=== PATIENT | male | born 1930 | race Caucasian/White ===

== ENCOUNTER 2017-07-21 17:53 | Inpatient (IN) | payer MEDICARE ==
[~2017-07-21] VITALS: Ht 172.7 cm; Wt 64.5 kg
--- NOTE | 2017-07-21 17:30 | NUR ---
PATIENT ADMITS TO [facility] HE COMES TO US FROM [facility]. HE WAS TAKEN TO THEIR HOSPITAL FOR A SYNCOPAL EPISODE HE HAD IN THE SHOWER AT HOME, BUT HE HAS A HX A DEMENTIA SINCE 2007. HE LIVES AT HOME WITH HIS SPOUSE AND SHE HAS BEEN CARING FOR HIM ALONG WITH HER NIECE. SHE SAYS "IT IS TIME HE GETS MORE HELP" SHE IS EXHAUSTED. PATIENT CAN AMBULATE, HE DOES HAVE SOME SCRATCHES TO HIS RIGHT BUTTOCKS FROM THE FALL AT HOME.
[2017-07-21 18:35] VITALS: BP 129/55
[2017-07-21] MEDS ORDERED: ASPIRIN81 MG PO (19:01)
[2017-07-21] MEDS ORDERED: ARICEPT10 MG PO (19:02)
[2017-07-21] MEDS ORDERED: HALDOL5 MG/ML IM (19:02)
[2017-07-21] MEDS ORDERED: NAMENDA10 MG PO (19:03)
[2017-07-21 19:04] VITALS: BP 129/55; BMI 21.1
--- NOTE | 2017-07-22 01:32 | NUR ---
B) Patient is alert and oriented to name, very confused , unable to communicate, very restless at times, combative at times, I) Administered PRN Haldol 2 mg IM at 20:00, monitored for safety and for falls, R) resting in bed , restless and pulling at bedrqails at times, P) Continue plan of care.
[2017-07-22 07:55] LABS: BASOPHILS 0.2 % (0-2); EOSINOPHILS 1.7 % (0-7); HEMATOCRIT 37.9 % (42.0-54.0); HEMOGLOBIN 13.1 g/dL (13.5-17.5); IMMATURE GRANULOCYTES 0.2 % (0-5); LYMPHOCYTES 28.7 % (15-50); MCH 32.7 pg (26.0-34.0); MCHC 34.6 g/dL (31.0-37.0); MCV 94.5 fL (80.0-100.0); MEAN PLATELET VOLUME 9.5 fL (7.4-10.4); NEUTROPHILS 60.2 % (40-80); PLATELET COUNT 111 10x3/uL (130-400); RBC 4.01 10x6/uL (4.20-6.10); RDW 13.3 % (11.5-14.5); WBC 5.3 10x3/uL (4.8-10.8)
[2017-07-22 08:00] VITALS: BP 98/55
[2017-07-22 08:04] LABS: HEMOGLOBIN A1C 5.5 % (4.8-6.0)
[2017-07-22 08:20] LABS: ALBUMIN 3.6 g/dL (3.4-5.0); ALKALINE PHOSPHATASE 75 U/L (46-116); ALT (SGPT) 21 U/L (10-68); BILIRUBIN - TOTAL 0.97 mg/dL (0.2-1.3); CALC OSMOLALITY 280 mosm/kg (275-300); CALCIUM 9.7 mg/dL (8.5-10.1); CARBON DIOXIDE 28.4 mmol/L (21.0-32.0); CHLORIDE - SERUM 103 mmol/L (98-107); CHOL - HDL RATIO 4.4 ratio (2.3-4.9); CHOLESTEROL, TOTAL 196 mg/dL (0-200); CREATININE - SERUM 0.9 mg/dL (0.6-1.3); GLUCOSE 102 mg/dL (74-106); HDL CHOLESTEROL 45 mg/dL (32-96); LDL CHOLESTEROL 137 mg/dL (0-100); POTASSIUM - SERUM 4.3 mmol/L (3.5-5.1); PROTEIN - SERUM 6.7 g/dL (6.4-8.2); SODIUM 140 mmol/L (136-145); THYROID STIMULATING HORMONE 2.29 uIU/mL (0.36-3.74); TRIGLYCERIDE 73 mg/dL (30-200); UREA NITROGEN 18 mg/dL (7-18); eGFR NON AFRICAN AMERICAN 85 mL/min (90-120)
[2017-07-22 14:26] VITALS: BMI 21.1
--- NOTE | 2017-07-22 15:08 | NUR ---
B) PATIENT IS AWAKE AND ALERT, HE IS ENJOYING THE SINGING IN THE DAY ROOM AND THE MUSIC. HE IS SMILING, HE FIGHTS WHEN ADL'S ARE BEING PROVIDED FOR HIM. PATIENT DID FEED HIMSELF LUNCH TODAY. HE DOES NOT SPEAK, HE USES WORD SALAD MOSTLY. I) PROVIDE PRESCRIBED MEDS. R) PATIENT IS COMPLIANT WITH MEDS CRUSHED IN A DRINK. P) CONTINUE POC.
--- NOTE | 2017-07-22 21:52 | PSY ---
PATIENT NAME:MARCELINO BERMUDEZ MEDICAL RECORD: [id number] : 31 LOCATION:[facility] ADMISSION DATE: 07/21/17 ACCOUNT: [id number] PSYCHIATRIC EVALUATION DATE OF EVALUATION: 07/22/17 IDENTIFYING DATA: This is the first Alf admission for this 87-year-old white male. HISTORY OF PRESENT ILLNESS: This patient had presented to the Emergency Department at [facility] prior to transfer here. The patient evidently had been having some syncopal episodes at home, does have a past history of cerebrovascular disease. He also has a previous history of dementia. His had been his caregiver, but because of the his worsening confusion and restlessness, she had reached the point that she felt she can no longer take care of him at home. When seen at [facility] Emergency Department, the patient had become extremely agitated and combative and required the use of intramuscular Haldol. After transfer here; however, the patient had evidently calmed considerably. He did not require further p.r.n. medication following transfer. The patient has shown progressive deterioration in mental status for sometime. He cannot communicate clearly at all. Speech is disjointed and rambling. Because of worsened mental status and combativeness, the patient was admitted. PAST MEDICAL HISTORY: This is significant for chronic atrial fibrillation and hyperlipidemia. Otherwise, the past history is relatively clear. MEDICATIONS: Prior to admission included aspirin, Aricept, and Namenda. ALLERGIES: None listed. FAMILY HISTORY: Noncontributory. SOCIAL HISTORY: The patient has been living at home with his . No substance abuse issues are noted. MENTAL STATUS: On interview, the patient is seated in a chair. He is responsive to the examiner, but does appear somewhat drowsy from time to time. He does not voice a specific complaint. Mood is for the most part euthymic. Affect is very constricted. Speech is nonfocused and somewhat rambling. Content of thought is negative for overt psychosis. On sensorium testing, the patient is oriented only to person. Remote, intermediate and short-term recall all showed significant deficits. 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 AXIS II: No diagnosis. AXIS III: Chronic atrial fibrillation, hyperlipidemia. AXIS IV: Severe. AXIS V: 36. PLAN: 1. The patient is admitted for further medical and psychiatric workup. 2. Diet and activities as tolerated. 3. We will assist family with aftercare plans and possible placement. TRANSINT:[id number] Voice Confirmation ID: [id number] DOCUMENT ID: [id number] YEVGENIY SANDOVAL III, MD at 2152 CC: [id number] DICTATION DATE: 07/22/17 1210 SOAKER SODA WORKER: 07/22/17 1254 ADM IN [place] [id number] [place] [address]
--- NOTE | 2017-07-23 00:55 | NUR ---
RECEIVED IN BEDROOM. ASSISTED TO TRANSFERE TO BED. VERY CONFUSED. CALM AND COOPERATIVE WITH CARE AND ASSESSMENTS. NO SIGNS OF AGGRESSION. REDIRECT AND REORIENT NEEDED. RESTING IN BED EYES CLOSED AT THIS TIME. CONTINUE PLAN OF CARE
[2017-07-23 05:14] LABS: RAPID PLASMA REAGIN Non Reactive (Non Reactive)
[2017-07-23 08:16] LABS: FOLATE (FOLIC ACID) - SERUM 8.9 ng/mL (>3.0)
--- NOTE | 2017-07-23 13:15 | NUR ---
SITTING IN RECLINER,NONVERBAL.COMPLIANT WITH MEDS AND STAFF.WILL CONTINUE WITH PLAN OF CARE,MONITOR FOR CHANGES AND SAFETY.
--- NOTE | 2017-07-23 22:50 | NUR ---
RECEIVED IN BEDROOM. RESTING IN BED WITH EYES OPEN. NON VERBAL. CALM AND COOPERATIVE WITH CARE AND ASSESSMENTS. NO SIGNS OF AGGRESSION. REDIRECT AND REORIENT NEEDED, CONTINUES TO REST QUIETLY IN BED. CONTINUE PLAN OF CARE
--- NOTE | 2017-07-24 05:02 | PN ---
PATIENT:MARCELINO BERMUDEZ MEDICAL RECORD: [id number] LOCATION:TO [facility] ADMISSION DATE: 07/21/17 PROGRESS NOTE DATE OF SERVICE: 07/23/2017 SUBJECTIVE: No new complaint. OBJECTIVE: The patient has remained cooperative. He is confused and oriented only to person. On exam, mood is euthymic. Affect is constricted. Speech is very terse today. Content of thought negative for overt psychosis. Sensorium shows no change. ASSESSMENT: No change in diagnosis. PLAN: 1. Maintain current medication. 2. Continue supportive therapy. TRANSINT:[id number] Voice Confirmation ID: [id number] DOCUMENT ID: [id number] YEVGENIY SANDOVAL III, MD at 0502 CC: [id number] DICTATION DATE: 07/23/17 0956 WRIST CLOSER: 07/23/17 1157 ADM IN [id number] [place] [address]
--- NOTE | 2017-07-24 11:18 | NUR ---
KEEPS EYES CLOSED MOST OF THE TIME.REFUSED BREAKFAST THIS AM.IS TOTAL CARE,SPOON FED PER STAFF WHEN HE WILL EAT.COMPLIANT WITH MEDS,MEDS CRUSHED AND GIVEN IN APPLESAUCE.WILL CONTINUE WITH PLAN OF CARE,MONITOR FOR CHANGES AND SAFETY.
[2017-07-24 19:09] VITALS: BP 136/71
[2017-07-24 20:30] VITALS: BP 127/53
--- NOTE | 2017-07-24 22:05 | NUR ---
RECEIVED IN HALLWAY. RESTING IN RECLINING CHAIR WITH EYES OPEN. NON VERBAL. NOT SOCIALIZING WITH STAFF OR PEERS. CALM AND COOPERATIVE WITH CARE AND ASSESSMENTS. NO SIGNS OF AGGRESSION. REDIRECT AND REORIENT. ENCOURAGE TO EXPRESS NEEDS. REFUSES PM MEDS AFTER ENCOURAGEMENT. RESTING IN BED WITH EYES CLOSED AT THIS TIME. CONTINUE PLAN OF CARE
[2017-07-25 06:07] LABS: VITAMIN D 25 HYDROXY 16.2 ng/mL (30.0-100.0)
[2017-07-25 12:18] VITALS: BP 148/78
--- NOTE | 2017-07-25 14:00 | NUR ---
ALERT TO NAME ONLY, SITTING IN RECLINER AND ANSWERS SOFTLY. COOPERATIVE WITH ASSESSMENT AND CARE. CONTINUE PLAN OF CARE AND MONITOR FOR SAFETY.
[2017-07-25 20:35] VITALS: BP 104/64
--- NOTE | 2017-07-25 21:04 | NUR ---
RECEIVED IN HALLWAY OUTSIDE OF NURSES STATION. SITTING QUIETLY IN CHAIR. CALM AND COOPERATIVE WITH CARE AND ASSESSMENTS. NON VERBAL. NO SIGNS OF AGGRESSION. ENCOURAGE TO EXPRESS NEEDS. RESTING IN BED WITH EYES CLOSED AT THIS TIME. CONTINUE PLAN OF CARE
--- NOTE | 2017-07-26 10:17 | PN ---
PATIENT:MARCELINO BERMUDEZ MEDICAL RECORD: [id number] LOCATION:[facility] ADMISSION DATE: 07/21/17 PROGRESS NOTE DATE OF SERVICE: 07/25/2017 SUBJECTIVE: No verbal complaint. OBJECTIVE: The patient continues to be rather withdrawn. He has been refusing medications from time to time. He has not been aggressive. Staff has been in contact with the patient's and it is apparent that he will need placement. PHYSICAL EXAMINATION: On exam, mood is euthymic. Affect is very constricted. Speech is minimal. Content of thought appears to focus only on somatic concerns. Sensorium shows no change. ASSESSMENT: No change in diagnosis. PLAN: 1. Maintain current medications. 2. Continue supportive therapy. TRANSINT:[id number] Voice Confirmation ID: [id number] DOCUMENT ID: [id number] YEVGENIY SANDOVAL III, MD at 1017 CC: [id number] DICTATION DATE: 07/25/17 1354 TRAFFIC DIRECTOR: 07/25/17 1419 ADM IN [place] [place] [address]
[2017-07-26 10:32] VITALS: BP 121/55
--- NOTE | 2017-07-26 21:54 | NUR ---
RECEIVED IN HALLWAY. SITTING IN A RECLINER AT NURSES STATION. CONTINUOUSLY ATTEMPTS TO STAND WITHOUT ASSIST. VERY CONFUSED. INCREASING ANXIETY. PRN ATIVAN 1 MG IM GIVEN FOR ANXIETY. CALM AND COOPERATIVE WITH CARE AND ASSESSMENTS. CONTINUES TO LAY IN RECLINER IN HALLWAY. ONE OM ONE FOR SAFETY. CONTINUE PLAN OF CARE
--- NOTE | 2017-07-27 09:31 | PN ---
PATIENT:MARCELINO BERMUDEZ MEDICAL RECORD: [id number] LOCATION:TO [facility] ADMISSION DATE: 07/21/17 PROGRESS NOTE DATE OF SERVICE: 07/26/2017 SUBJECTIVE: No new complaint noted. OBJECTIVE: The patient is much more alert. He is even interacting with staff members. Tolerating medications. On exam, mood is euthymic. Affect is bland. Speech is rather terse. Content of thought is negative for overt psychosis at the moment. Sensorium unchanged. ASSESSMENT: No change in diagnosis. PLAN: 1. Maintain current medications. 2. Continue supportive therapy. TRANSINT:[id number] Voice Confirmation ID: [id number] DOCUMENT ID: [id number] YEVGENIY SANDOVAL III, MD at 0931 CC: [id number] DICTATION DATE: 07/26/17 1209 AMBULETTE DRIVER: 07/26/17 1233 ADM IN [facility] [address] [place] [id number]
--- NOTE | 2017-07-27 15:47 | NUR ---
Alert, calm, participated with PT exercise. Denies pain, med compliant with no s/s adverse reaction noted. Continued confusion, no aggression noted. Present for group, participates when cued. Cont plan of care including meds and group therapy.
--- NOTE | 2017-07-27 20:12 | NUR ---
RECEIVED IN HALLWAY. VERY CONFUSED. ATTEMPTS TO STAND WITHOUT ASSIST. BECOMING INCREASINGLY ANXIOUS WITH REDIRECTION. CALM AND COOPERATIVE WITH CARE AND ASSESSMENTS. NO SIGNS OF AGGRESSION. PRN ATIVAN 1 MG IM GIVEN FOR INCREASING ANXIETY. CONTINUES TO SIT IN RECLINER OUTSIDE OF NURSES STATION VERY CONFUSED TRYING TO GET OUT OF RECLINER. CONTINUE PLAN OF CARE
--- NOTE | 2017-07-28 08:07 | PN ---
PATIENT:MARCELINO BERMUDEZ MEDICAL RECORD: [id number] LOCATION:TO [facility] ADMISSION DATE: 07/21/17 PROGRESS NOTE DATE OF SERVICE: 07/27/2017 SUBJECTIVE: No new complaint. OBJECTIVE: The patient continues to show improvement. He is much more ambulatory. On exam, mood is for the most part pleasant and euthymic. Affect is still very shallow. Speech is quite terse. Content of thought is unchanged. Sensorium unchanged. ASSESSMENT: No change in diagnosis. PLAN: 1. Staff is maintaining contact with family regarding shelter placement. 2. Maintain current medications. 3. Continue supportive therapy. TRANSINT:[id number] Voice Confirmation ID: [id number] DOCUMENT ID: [id number] YEVGENIY SANDOVAL III, MD at 0807 CC: [id number] DICTATION DATE: 07/27/17 1154 ROBOTICS SOFTWARE ENGINEER: 07/27/17 1224 ADM IN [facility] [address] [place] [address]
--- NOTE | 2017-07-28 10:08 | NUR ---
B) PATIENT IS SLEEPY THIS AM, HELD HIS MEDICATION, HE IS GETTING HIS PATINO TRIMMED AT THIS TIME, HE HAS TRIED TO HIT AT STAFF, BUT HE REMAINS SLEEPY. I) PROVIDE PRESCRIBED MEDS. R) PATIENT IS CALM THIS AM, BUT HE IS BECAUSE HE IS SLEEPY. P) CONTINUE POC.
[2017-07-28 11:59] VITALS: BP 119/56
--- NOTE | 2017-07-28 15:54 | NUR ---
FENG SPOKE WITH PT'S , JOY, TO DISUSS DISCHARGE PLANNING. FENG STATED [facility] HAVE BEEN SENT THE PAPERWORK AND WE ARE WAITING FOR DETERMINATION ON PT'S PLACEMENT. JOY VERBALIZED UNDERSTANDING OF DISCUSSION.
--- NOTE | 2017-07-28 20:04 | NUR ---
RECEIVED IN DAYROOM. SITTING IN RECLINER. NON VERBAL. NOT SOCIALIZING. CALM AND COOPERATIVE WITH CARE AND ASSESSMENT. NO SIGNS OF AGGRESSION. ENCOURAGE TO EXPRESS NEEDS. REDIRECT AND REORIENT NEEDED. PATIENT CONTINUES TO SIT IN RECLINER QUIETLY AT THIS TIME. CONTINUE PLAN OF CARE.
[2017-07-28 22:00] VITALS: BP 133/79
--- NOTE | 2017-07-29 08:01 | NUR ---
RESTING IN RECLINER WITH EYES CLOSED. RESPONDS TO VOICE AND TOUCH. CALM AND COOPERATIVE WITH CARE AND ASSESSMENTS. NO SIGNS OF AGGRESSION. REDIRECT AND REORIENT NEEDED. CONTINUES TO REST QUIETLY IN RECLINER. CONTINUE PLAN OF CARE
--- NOTE | 2017-07-29 08:30 | NUR ---
WHEN STAFF WENT TO CHANGE PATIENT, IT IS NOTED THAT PATIENT HAS A LARGE REDDENED AREA TO THE RIGHT SIDE OF HIS LOWER BACK THAT IS APPROXIMATELY 4 INCHES WIDE X 6 INCHES LONG. STAFF APPLIED OSVALDO TO AREA.
--- NOTE | 2017-07-29 10:07 | PN ---
PATIENT:MARCELINO BERMUDEZ MEDICAL RECORD: [id number] LOCATION:TO [facility] ADMISSION DATE: 07/21/17 PROGRESS NOTE DATE OF SERVICE: 07/28/2017 SUBJECTIVE: No new complaint. OBJECTIVE: The patient has been somewhat more agitated and restless. He required p.r.n. Ativan and slept poorly last night. On exam today, mood is slightly irritable. Affect is brittle. Speech is tangential. Content of thought is negative for clear-cut psychosis. Sensorium is unchanged. ASSESSMENT: No change in diagnosis. PLAN: 1. Maintain current medication. 2. Continue supportive therapy. TRANSINT:[id number] Voice Confirmation ID: [id number] DOCUMENT ID: [id number] YEVGENIY SANDOVAL III, MD at 1007 CC: [id number] DICTATION DATE: 07/28/17 1151 CORE MANAGER: 07/28/17 1207 ADM IN [place] [id number] [place] [id number]
[2017-07-29 10:47] VITALS: BP 97/62
[2017-07-29 19:30] VITALS: BP 120/53
--- NOTE | 2017-07-30 05:21 | NUR ---
B) Patient alert and oriented to self, restless at times, non verbal, I) Administered scheduled medications crushed, monitored for safety, PRN Haldol 2 mg IM given for anxiety at 2100, R) Medication compliant, resting quietly in bed P) Continue plan of care.
--- NOTE | 2017-07-30 07:43 | NUR ---
B) PATIENT IS SLEEPING IN HIS BED, HE ALLOWED THIS NURSE TO ASSESS HIM AND HE DID NOT FIGHT. HE REMAINS ASLEEP. HE DOES HAVE THE DERREK ON HIS LOWER RIGHT SIDE OF HIS BACK THAT IS PINK IN COLOR, WILL CONTINUE TO APPLY NEW. I) PROVIDE PRESCRIBED MEDS. R) WILL GIVE MEDS AND GET UP FOR BREAKFAST. P) CONTINUE POC.
[2017-07-30 08:00] VITALS: BP 113/50
--- NOTE | 2017-07-30 13:45 | NUR ---
PATIENT IS COUGING UP COPIOUS AMOUNTS OF PHELGM, DID LISTEN TO HIS LUNGS HE HAS CRACKLES IN RIGHT UPPER LOBE, CHESARTHAKE STATES HE WAS EATING THE ROAST BEEF THEN STARTED COUGHING. CALLED DR. SIMONS, NEW ORDER FOR O2 AT 2L/M, GRISELDA MUNSON 4 X A DAY, BMP, CBC IN AM, CXR NOW.
--- NOTE | 2017-07-30 14:30 | NUR ---
ATTEMPTED TO PUT OXYGEN ON PATIENT HE IS FIGHTING AND PULLING IT OFF, DID GET AN spo2 OF 92% WITH O2 @ 2, WILL ATTEMPT TO PUT O2 BACK ON HIM IN A LITTLE BIT.
[2017-07-30 19:28] VITALS: BP 102/62
--- NOTE | 2017-07-30 21:55 | NUR ---
GAVE PATIENT HALDOL 2 MG IM FOR ANXIETY AT 21:55.
--- NOTE | 2017-07-31 03:40 | NUR ---
B) Patient is alert and oriented to self, very confused and disoriented, unaware of surroundings, restless and constantly needing redirection, I) Administered scheduled medications, monitored for safety R) Medication compliant, constant one on one supervision needed P) Continue plan of care.
[2017-07-31 06:26] LABS: BASOPHILS 0.2 % (0-2); EOSINOPHILS 2.6 % (0-7); HEMOGLOBIN 11.5 g/dL (13.5-17.5); IMMATURE GRANULOCYTES 0.2 % (0-5); LYMPHOCYTES 24.4 % (15-50); MCH 31.9 pg (26.0-34.0); MCHC 33.8 g/dL (31.0-37.0); MCV 94.2 fL (80.0-100.0); MEAN PLATELET VOLUME 9.6 fL (7.4-10.4); MONOCYTES 7.1 % (2-11); NEUTROPHILS 65.5 % (40-80); RBC 3.61 10x6/uL (4.20-6.10); RDW 13.5 % (11.5-14.5); WBC 6.2 10x3/uL (4.8-10.8)
[2017-07-31 06:31] LABS: PLATELET COUNT 145 10x3/uL (130-400)
[2017-07-31 06:46] LABS: CALC OSMOLALITY 288 mosm/kg (275-300); CALCIUM 9.2 mg/dL (8.5-10.1); CARBON DIOXIDE 26.5 mmol/L (21.0-32.0); CHLORIDE - SERUM 104 mmol/L (98-107); GLUCOSE 99 mg/dL (74-106); SODIUM 141 mmol/L (136-145); UREA NITROGEN 34 mg/dL (7-18); eGFR NON AFRICAN AMERICAN 75 mL/min (90-120)
[2017-07-31 07:00] VITALS: BP 113/40
--- NOTE | 2017-07-31 16:46 | NUR ---
ORIENTED TO SELF ONLY.NONVERBAL EXCEPT FOR ONE WORD HEARD OCCASSIONALY.VERY UNSTEADY,REQUIRES WHEELCHAIR OR ROLLING RECLINER.IS COMPLIANT WITH MEDS.SWALLOW EVAL DONE THIS AFTERNOON,PUREED DIET WITH THIN LIQUIDS RECOMMENED.WILL CONTINUE WITH PLAN OF CARE,MONITOR FOR CHANGES AND SAFET.
[2017-07-31 19:30] VITALS: BP 122/61
--- NOTE | 2017-07-31 21:14 | NUR ---
RECEIVED IN HALLWAY. SITTING QUIETLY IN RECLINING CHAIR. TRANSFERED TO A BED IN HALLWAY FOR SAFETY. CALM AND COOPERATIVE WITH CARE AND ASSESSMENTS. HELD PM MEDS DUE TO LETHARGIC STATE. ENCOURAGE TO EXPRESS NEEDS. CONTINUES TO REST QUIETLY IN BED. CONTINUE PLAN OF CARE
[2017-08-01 08:17] VITALS: BP 124/59
--- NOTE | 2017-08-01 09:00 | NUR ---
AWAKE AND ORIENTED TO SELF ONLY, VERY CONFUSED AND DISORIENTED, UNAWARE OF SURROUNDINGS. COOPERATIVE WITH ASSESSMENT. MONITOR FOR SAFETY AND CHANGES, WILL CONTINUE PLAN OF CARE.
--- NOTE | 2017-08-01 09:39 | PN ---
PATIENT:MARCELINO BERMUDEZ MEDICAL RECORD: [id number] LOCATION:TO [facility] ADMISSION DATE: 07/21/17 PROGRESS NOTE DATE OF SERVICE: 07/29/2017 SUBJECTIVE: No new verbal complaint. OBJECTIVE: The patient is being assessed by [facility] for possible transfer there. He is stable. No further behavioral problems noted today. On exam, mood is for the most part euthymic. Affect is very shallow. Speech is tangential. Content of thought is negative for overt psychosis. The patient is extremely confused; however, he is oriented only to person with global memory impairment. ASSESSMENT: No change in diagnosis. PLAN: 1. Continue current medications. 2. Continue supportive therapy. TRANSINT:[id number] Voice Confirmation ID: [id number] DOCUMENT ID: [id number] YEVGENIY SANDOVAL III, MD at 0939 CC: [id number] DICTATION DATE: 07/29/17 112 ADMINISTRATIVE ANALYST: 07/29/17 1137 ADM IN [id number] [place] [address]
[2017-08-01 19:21] VITALS: BP 132/57
--- NOTE | 2017-08-01 19:47 | NUR ---
RECEIVED IN HALLWAY. SITTING IN A RECLINER OUTSIDE OF NURSES STATION. ONE ON ONE FOR SAFETY. CALM AND COOPERATIVE WITH CARE AND ASSESSMENTS. NO SIGNS OF AGGRESSION. REDIRECT AND REORIENT NEEDED. ENCOURAGE TO EXPRESS NEEDS. CONTINUE TO REST IN HALLWAY. CONTINUE PLAN OF CARE
--- NOTE | 2017-08-02 06:06 | PN ---
PATIENT:MARCELINO BERMUDEZ MEDICAL RECORD: [id number] LOCATION:TO [facility] ADMISSION DATE: 07/21/17 PROGRESS NOTE DATE OF SERVICE: 08/01/2017 SUBJECTIVE: No new complaint. OBJECTIVE: The patient has done well over the weekend. No new problems noted. He is much more active about the unit. He is interacting considerably better with staff. On exam, mood is for the most part euthymic. Affect is very shallow. Speech tends to be repetitive. Content of thought is negative for overt psychosis. Sensorium unchanged. ASSESSMENT: No change in diagnosis. PLAN: 1. Continue current medications. 2. Continue supportive therapy. TRANSINT:[id number] Voice Confirmation ID: [id number] DOCUMENT ID: [id number] YEVGENIY SANDOVAL III, MD at 0606 CC: [id number] DICTATION DATE: 08/01/17 1310 PIPELINES SUPERINTENDENT: 08/01/17 1326 ADM IN [place] [address] [place] [id number]
[2017-08-02 11:08] VITALS: BP 107/54
[2017-08-02 14:22] VITALS: Ht 172.7 cm; Wt 64.5 kg
[2017-08-02 20:06] VITALS: BP 109/50
--- NOTE | 2017-08-02 22:11 | NUR ---
RECEIVED IN HALLWAY. SITTING OUTSIDE OF NURSES STATION IN A RECLINING CHAIR. VERY CONFUSED. ATTEMPTS TO STAND WITHOUT ASSIST FROM RECLINER. CALM AND COOPERATIVE WITH CARE AND ASSESSMENTS. NO SIGNS OF AGGRESSION. REDIRECT AND REORIENT NEEDED. CONTINUE TO SIT EYES OPEN IN RECLINER. CONTINUE PLAN OF CARE
--- NOTE | 2017-08-03 05:14 | PN ---
PATIENT:MARCELINO BERMUDEZ MEDICAL RECORD: [id number] LOCATION:TO [facility] ADMISSION DATE: 07/21/17 PROGRESS NOTE DATE OF SERVICE: 08/02/2017 SUBJECTIVE: No new complaint. OBJECTIVE: The patient has continued to be cooperative. No new problems noted, we are waiting on final approval from [facility]. On exam, mood is euthymic. Affect constricted. Speech is terse. Content of thought is negative for overt psychosis. Sensorium unchanged. ASSESSMENT: No change in diagnosis. PLAN: 1. Continue current medications. 2. Continue supportive therapy. TRANSINT:[id number] Voice Confirmation ID: [id number] DOCUMENT ID: [id number] YEVGENIY SANDOVAL III, MD at 0514 CC: [id number] DICTATION DATE: 08/02/17 1040 SIEBEL DEVELOPER: 08/02/17 1103 ADM IN [facility] [address] [place] [id number]
[2017-08-03 08:00] VITALS: BP 122/53
[2017-08-03 19:43] VITALS: BP 114/49; BP 138/95
--- NOTE | 2017-08-03 19:50 | NUR ---
ORIENTED TO SELF ONLY. CALM AND COOPERATIVE WITH ASSESSMENT. COMPLIANT WITH TAKING PRESCRIBED MEDICATIONS. MONITOR FOR SAFETY AND CHANGES. WILL CONTINUE PLAN OF CARE.
--- NOTE | 2017-08-04 01:50 | NUR ---
B) Patient alert and oriented to name, restless at times, very confused, I) Administered scheduled medications, monitored for safety, redirected as needed, R) Medication compliant, resting in the hallway for safety, P) Continue plan of care.
--- NOTE | 2017-08-04 07:53 | NUR ---
B) PATIENT IS AWAKE AND ALERT, HE KNOWS HIS NAME, BUT HE IS NOT AWARE OF HIS SURROUNDINGS. HE DID NOT FIGHT WHEN HE GOT UP THIS AM, HE NEEDS A SLOW, SOFT, CALM APPROACH AND HE DOES VERY WELL. PATIENT DOES HAVE A SMALL RED AREA ON HIS SACRAL AREA THAT IS APPROX. 2 CM X 2 CM IN SIZE, HIS BUTTOCKS ARE PINK, BUT BLANCHABLE AND HE HAS SCRATCHED HIS RIGHT CALF AND HAS SCRATCHES TO THE AREA AND RED GARCIA. PATIENT IS D/CING TODAY. I) PROVIDE PRESCRIBED MEDS. R) WILL FAX D/C ORDER AND MAR TO [facility] AND MAKE A HARD COPY. P) CONTINUE POC.
[2017-08-04 08:00] VITALS: BP 137/64
--- NOTE | 2017-08-04 08:22 | PN ---
PATIENT:MARCELINO BERMUDEZ MEDICAL RECORD: [id number] LOCATION:TO [facility] ADMISSION DATE: 07/21/17 PROGRESS NOTE DATE OF SERVICE: 08/03/2017 SUBJECTIVE: No new complaint. OBJECTIVE: Arrangements are being made for transfer to [facility] in the near future. The patient is stable. On exam, mood is euthymic. Affect is reserved. Speech is rather terse. Content of thought is negative for overt psychosis. Sensorium unchanged. ASSESSMENT: No change in diagnosis. PLAN: 1. Continue current medications. 2. Continue supportive therapy. TRANSINT:[id number] Voice Confirmation ID: [id number] DOCUMENT ID: [id number] YEVGENIY SANDOVAL III, MD at 0822 CC: [id number] DICTATION DATE: 08/03/17 112 CLOTH MERCERIZER BACK TENDER: 08/03/17 1144 ADM IN [facility] [address] [place] [address]
--- NOTE | 2017-08-04 10:30 | NUR ---
PATIENT IS NOT D/CING TODAY PER DR. SANDOVAL AND TIFF REGALADO ARTIFICIAL LIMB FITTER.
--- NOTE | 2017-08-04 16:14 | NUR ---
SPOUSE NOTICED A HARD KNOT ON PATIENT'S RIGHT WRIST WHERE THERE IS A VEIN. IT IS RED, UNSURE IF IT IS HARD AND RED FROM A BLOOD DRAW, WILL HAVE DR. KRISTYN MARTIN.
[2017-08-04 19:29] VITALS: BP 113/40
--- NOTE | 2017-08-05 02:37 | NUR ---
B) Patient alert and oriented to name, very confused and unaware of surroundings, scratches at legs and groin, restless at times, I) Administered scheduled medications crushed, monitored for safety, R) Medication compliant, resting in hallway for safety,\ P) Continue plan of care.
--- NOTE | 2017-08-05 07:00 | NUR ---
B) PATIENT IS AWAKE AND HE IS GETTING UP AND WALKING ALL OVER THE UNIT, HE HAS GONE INTO ROOMS AND SAT IN THE CHAIRS, DID HAVE TO REDIRECT HIM OUT OF THE ROOM, HE DID TRY TO GET IN ONE OF THE CLEAN ROOMS, BUT HE AGAIN WAS REDIRECTED. I) PROVIDE PRESCRIBED MEDS. R) PATIENT IS COMPLIANT WITH MEDS, HE CAN BE FUSSY WITH STAFF WHEN REDIRECTED, HE DOES NOT UNDERSTAND ANY REDIRECTION, HE CAN NOT SPEAK COMPLETE SENTENCES, HE GARBLES WORDS, BUT CAN SAY "YEAH" AND "THANK YOU". P) CONTINUE POC.
--- NOTE | 2017-08-06 02:02 | NUR ---
B) patient is alert and oriented to self, very confused, word salad, restless and trying to stand unassisted, I) Administered scheduled medications, PRN Haldol 2 mg IM given at 21:36 and again at 00:50, monitored for safety, R) Medication compliant, unable to redirect, P) Continue plan of care.
--- NOTE | 2017-08-06 10:32 | PN ---
PATIENT:MARCELINO BERMUDEZ MEDICAL RECORD: [id number] LOCATION:TO [facility] ADMISSION DATE: 07/21/17 PROGRESS NOTE DATE OF SERVICE: 08/05/2017 SUBJECTIVE: The patient's case was discussed with staff. He has no new complaint. OBJECTIVE: The patient is in good behavioral control with poor insight about his condition. He tolerates his medicines well. ASSESSMENT: No change in diagnoses. PLAN: Current medicines and therapies have been reviewed and will be maintained. Long-term prognosis is guarded. TRANSINT:[id number] Voice Confirmation ID: [id number] DOCUMENT ID: [id number] SOBEIDA ZHOU MD at 1032 CC: [id number] DICTATION DATE: 08/05/17 1243 MAINTENANCE CONSTRUCTION HELPER: 08/05/17 1317 ADM IN [facility] [address] [place] [address]
--- NOTE | 2017-08-06 15:54 | NUR ---
IS CONFUSED AND DISORIENTED.DOES NOT RESPOND VERBALLY TO NURSE.IS COMPLIANT WITH MEDS CRUSHED AND GIVEN IN APPLESAUCE.WILL CONTINUE WITH PLAN OF CARE,MONITOR FOR CHANGES AND SAFETY.
--- NOTE | 2017-08-06 20:02 | PN ---
PATIENT:MARCELINO BERMUDEZ MEDICAL RECORD: [id number] LOCATION:TO [facility] ADMISSION DATE: 07/21/17 PROGRESS NOTE DATE OF SERVICE: 08/06/2017 SUBJECTIVE: The patient's case was discussed with staff. He has no new complaint. OBJECTIVE: The patient is very impaired. He is verbal, but he is not making any sense. He follows some very simple commands. Apparently, he thinks I am someone he knows and seems to be happy to see me. He is in good behavioral control when I speak with him, but last night was terrible. He required p.r.n. medication twice, it really was not effective. He was agitated throughout the night and only slept about an hour. He is extremely confused. I know he has a lot of pain in his knees. Any time they are moved, he reacts in a way that is obvious it hurts him badly. ASSESSMENT: No change in diagnoses. PLAN: I am going to give this patient a Duragesic patch. I know he is having a lot of leg pain and I think that is probably part of his agitation, and he is so advanced in his dementia he really cannot interpret or explain what is going on. In addition to this, I am going to give him some Klonopin to calm his agitation and an antipsychotic medication to assist with his behavioral disorganization. This patient's condition is severe. He is very advanced in his dementia. He is almost completely unmanageable from a behavioral standpoint. His prognosis is exceedingly poor and if these efforts are not effective, then I am not sure they will be. I think comfort care measures and palliative care would be appropriate for him. TRANSINT:[id number] Voice Confirmation ID: [id number] DOCUMENT ID: [id number] SOBEIDA ZHOU MD at 2002 CC: [id number] DICTATION DATE: 08/06/17 110 TONGUE TRIMMER: 08/06/17 1141 ADM IN [place] [id number] [place] [address]
[2017-08-06 22:05] VITALS: BP 111/52
--- NOTE | 2017-08-06 23:18 | NUR ---
RECEIVED IN HALLWAY. RESTING IN RECLINER. CALM AND COOPERATIVE WITH CARE AND ASSESSSMENT. NO SIGNS OF AGGRESSION. REDIRECT AND REORIENT NEEDED. ENCOURAGE TO EXPRESS NEEDS. RESTING WITH EYES CLOSED AT THIS TIME. CONTINUE PLAN OF CARE.
[2017-08-07 08:00] VITALS: BP 113/52
--- NOTE | 2017-08-07 09:00 | NUR ---
ASSESSMENT COMPLETED PER FLOW SHEET. REFUSED TO EAT BREASKFAST WITH LOTS OF COAXING.
--- NOTE | 2017-08-07 09:49 | NUR ---
ADMINISTERED MORNING MEDS CRUSHED IN APPLESAUCE WITHOUT DIFFICULTY, FOLLOWED BY 240CC ENSURE. PLEASANT AFFECT. NO S/SX OF ACUTE DISTRESS NOTED. WILL CONTINUE TO MONITOR
[2017-08-07 19:30] VITALS: BP 118/60
--- NOTE | 2017-08-07 22:57 | NUR ---
RECEIVED IN HALLWAY. LAYING IN BED OUTSIDE OF NURSES STATION. CALM AND COOPERATIVE WITH CARE AND ASSESSMENTS. HELD PM PSYCH MEDS DUE TO LETHARGIC STATE. CONTINUE TO MONITOR IN HALLWAY FOR SAFETY. CONTINUE PLAN OF CARE
[2017-08-08 08:57] VITALS: BP 119/57
--- NOTE | 2017-08-08 09:19 | PN ---
PATIENT:MARCELINO BERMUDEZ MEDICAL RECORD: [id number] LOCATION:TO [facility] ADMISSION DATE: 07/21/17 PROGRESS NOTE DATE OF SERVICE: 08/07/2017 SUBJECTIVE: The patient's case was discussed with staff. He has no new complaint. OBJECTIVE: The patient is in good behavioral control with poor insight about his condition. He has not been aggressive today. ASSESSMENT: No change in diagnoses. PLAN: The patient is not eating well at all. This is presenting a significant management problem for him and his long-term prognosis is exceedingly poor if he does not begin eating better and soon. He is more cooperative today. I think the Duragesic patches helped. I am going to start him on Megace for its appetite-stimulating properties. TRANSINT:[id number] Voice Confirmation ID: [id number] DOCUMENT ID: [id number] SOBEIDA ZHOU MD at 0919 CC: [id number] DICTATION DATE: 08/07/17 1121 PARKING MANAGER: 08/07/17 1222 ADM IN [place] [id number] [place] [address]
[2017-08-08 20:14] VITALS: BP 112/60
--- NOTE | 2017-08-09 00:23 | NUR ---
RECEIVED IN [facility]. RESTING IN RECLINING CHAIR WITH HIS EYE OPEN. ATTEMPTS TO STAND WITHOUT ASSIST. PAWAN ALARM SOUNDING. CALM AND COOPERATIVE WITH CARE AND ASSESSMENTS. REDIRECT AND REORIENT NEEDED. RESTING IN RECLINER EYES CLOSED AT THIS TIME. CONTINUE PLAN OF CARE
--- NOTE | 2017-08-09 09:05 | PN ---
PATIENT:MARCELINO BERMUDEZ MEDICAL RECORD: [id number] LOCATION:[facility] ADMISSION DATE: 07/21/17 PROGRESS NOTE DATE OF SERVICE: 08/08/2017 SUBJECTIVE: The patient's case was discussed with staff. He has no new complaint. OBJECTIVE: The patient is in good behavioral control with limited insight about his condition. He tolerates his medicines well. ASSESSMENT: No change in diagnoses. PLAN: The patient will be maintained on current medicines, which I have reviewed. His long-term prognosis is guarded. TRANSINT:[id number] Voice Confirmation ID: [id number] DOCUMENT ID: [id number] SOBEIDA ZHOU MD at 0905 CC: [id number] DICTATION DATE: 08/08/17 140 VISUAL DESIGNER: 08/08/172117 ADM IN [id number] [place] [address]
[2017-08-09 09:43] VITALS: BP 114/53
--- NOTE | 2017-08-09 12:07 | NUR ---
Nutrition Follow Up: Pt is eating 26% meal avg on a regular puree diet. +BM 08/04/17-no BM x 5 days. Labs reviewed. Meds noted including Megace. Rec continue regular diet with MANAGER [employer] recs for consistencies. RD following.
--- NOTE | 2017-08-09 13:10 | NUR ---
PT IS ANXIOUS AND FIGDETY. HE IS RESTLESS AND REQUIRES FREQUENT REDIRECTION AND USING RELAXATION TECHNIQUES. PT RELAXES WHEN STAFF RUBS HIS BACK OR HEAD. ELVIA MAT IN PLACE BUT PT CONTINUES TO REMOVE IT AND SLIDES IN CHAIR. BARRIER CREAM USED TO HELP WITH SKIN ABRASION ON BUTTOCKS. NO AGGRESSION NOTED. MEDICATIONS GIVEN. FALL PRECAUTIONS MAINTAINED. WILL CONTINUE TO MONITOR AND CONTINUE WITH PLAN OF CARE.
--- NOTE | 2017-08-09 19:41 | NUR ---
RECEIVED IN HALLWAY. SITTING IN A RECLINING CHAIR AT NURSES STATION WITH EYES CLOSED. RESPONDS TO TOUCH. CONFUSED. CALM AND COOPERATIVE WITH CARE AND ASSESSMENTS. REDIRECT AND REORIENT NEEDED. CONTINUES TO REST EYES CLOSED AT THIS TIME. CONTINUE PLAN OF CARE
--- NOTE | 2017-08-10 07:00 | NUR ---
Called to pt room per [facility]. Bruise measuring approx. 15 cm x 15 cm noted to pt's right ribs. Skin intact. Bruise appears to have been caused by leaning against arm of recliner. Pt denies pain to the area. Physician notified, no new orders noted.
--- NOTE | 2017-08-10 08:30 | NUR ---
Rec'd pt in dining room, appetite good, requires assistance with meals, med compliant, takes meds crushed and mixed in chocolate pudding, alert with confusion, unsteady gait. No s/s adverse reaction to meds. Cont POC including meds and group therapy.
[2017-08-10 09:07] VITALS: BP 90/45
--- NOTE | 2017-08-10 11:54 | NUR ---
Cont confusion, visual hallucinations noted, no aggression noted at this time.
--- NOTE | 2017-08-10 12:52 | PN ---
PATIENT:MARCELINO BERMUDEZ MEDICAL RECORD: [id number] LOCATION:TO [facility] ADMISSION DATE: 07/21/17 PROGRESS NOTE DATE OF SERVICE: 08/09/2017 SUBJECTIVE: The patient's case was discussed with staff. He has no new complaint. OBJECTIVE: The patient is in good behavioral control with limited insight about his condition. He generally tolerates his medicines well. He was agitated last night. He is impaired in a severe way. He will be given a low dose of Klonopin to assist with some of his anxiety. His shelter prognosis is unfortunately quite poor. TRANSINT:[id number] Voice Confirmation ID: [id number] DOCUMENT ID: [id number] SOBEIDA ZHOU MD at 1252 CC: [id number] DICTATION DATE: 08/09/17 1339 ORACLE ARCHITECT: 08/09/17 1405 ADM IN [facility] [address] [place] [address]
[2017-08-10 19:36] VITALS: BP 150/72
--- NOTE | 2017-08-10 23:12 | NUR ---
RECEIVED IN HALLWAY OUTSIDE OF NURSES STATION. SITTING IN RECLINER WTIH PEERS. ATTEMPTING TO STAND WITHOUT ASSIST. ALARM SOUNDING. PATIENT FELL IN HALLWAY ATTEMPTING TO WALK WITH WALKER. LANDED ON TOP OF WALKER ON HIS RIGHT SIDE. BRUISING ON RIGHT RIB CAGE. DOCTOR KRISTYN NOTIFIED AND ORDER RECEIVED FOR XRAY OF RIB CAGE. MEDICAL DETAILIST JENNIFER NOTIFIED. NEURO CHECKS STARTED. PATIENT RESISTIVE TO TURNING OVER ON BACK DURING XRAY. REDIRECT AND REORIENT NEEDED. RESTING IN BED WITH EYES CLOSED AT THIS TIME. CONTINUE PLAN OF CARE.
--- NOTE | 2017-08-11 05:26 | NUR ---
PATIENT IS ANXIOUS AND RESTLESS. HALLUCINATING. HITTING WALL WITH HAND. ATTEMPTING TO STAND WITHOUT ASSIST. UNABLE TO REDIRECT. PRN ATIVAN 1 MG IM GIVEN FOR INCREASING ANXIETY.
--- NOTE | 2017-08-11 07:33 | NUR ---
CALLED PATIENTS FAMILY ABOUT PATIENT FALLING LAST NIGHT. NEPHEW ANSWERED THE PHONE AND SAID THAT PATIENTS WAS STILL SLEEPING AND ASKED IF HE COULD TAKE A MESSAGE FOR HER. LEFT MESSAGE WITH NEPHEW FOR PATIENTS TO CALL [facility].
--- NOTE | 2017-08-11 09:56 | PN ---
PATIENT:MARCELINO BERMUDEZ MEDICAL RECORD: [id number] LOCATION:TO [facility] ADMISSION DATE: 07/21/17 PROGRESS NOTE DATE OF SERVICE: 08/10/2017 SUBJECTIVE: The patient's case was discussed with staff. He has no new complaint. OBJECTIVE: The patient is in good behavioral control with limited insight about his condition. He generally tolerates his medicines well. ASSESSMENT: No change in diagnoses. PLAN: Current medicines have been reviewed and will be maintained. Long-term prognosis is guarded. TRANSINT:[id number] Voice Confirmation ID: [id number] DOCUMENT ID: [id number] SOBEIDA ZHOU MD at 0956 CC: [id number] DICTATION DATE: 08/10/17 1304 PEOPLESOFT TALEO MANAGER: 08/10/17 1311 ADM IN [facility] [address] [place] [address]
[2017-08-11 10:06] VITALS: BP 140/56
--- NOTE | 2017-08-11 13:26 | NUR ---
B) PATIENT IS SLEEPY THIS AM, HE IS SLEEPING IN A DANIELE CHAIR UNTIL BREAKFAST AND THEN HE DID WAKE UP. PATIENT IS PLEASANT AND HAS NOT SHOWN ANY AGGRESSION. I) PROVIDE PRESCRIBED MEDS AND REDIRECT IN A CALM, SLOW MANNER. R) PATIENT IS COMPLIANT WITH MEDS, HE DOES LIKE TO BE DOING SOMETHING WITH HIS HANDS AT ALL TIMES. P) CONTINUE POC.
--- NOTE | 2017-08-12 02:05 | NUR ---
B) patient is sleeping most of the shift, arrouses fr medications and care, I) Administered scheduled medications crushed in applesauce, R) Medications compliant, resting quietly asleep P) Continue plan of care.
[2017-08-12 09:06] VITALS: BP 98/50
--- NOTE | 2017-08-12 09:17 | PN ---
PATIENT:MARCELINO BERMUDEZ MEDICAL RECORD: [id number] LOCATION:TO [facility] ADMISSION DATE: 07/21/17 PROGRESS NOTE DATE OF SERVICE: 08/11/2017 SUBJECTIVE: The patient's case was discussed with staff. He has no new complaint. OBJECTIVE: The patient is in good behavioral control with limited insight about his condition. ASSESSMENT: No change in diagnoses. PLAN: Brief supportive and educational interventions were made. Long-term prognosis is guarded. TRANSINT:[id number] Voice Confirmation ID: [id number] DOCUMENT ID: [id number] SOBEIDA ZHOU MD at 0917 CC: [id number] DICTATION DATE: 08/11/17 1005 VICE CHAIR: 08/11/17 1100 ADM IN [place] [place] [address]
--- NOTE | 2017-08-12 11:20 | NUR ---
B) PATIENT IS ANXIOUS AND IRRITABLE THIS AM, HE DID RECEIVE HIS GEODON AND THIS MEDICINE DID HELP SLIGHTLY. HE ATE BREAKFAST THEN DRANK TWO SHAKES AFTER BREAKFAST. PATIENT IS CONFUSED AND HE IS UNABLE TO SPEAK, BUT SOMETIMES HE WILL SAY A WORD HERE AND THERE. I) PROVIDE PRESCRIBED MEDS. R) PATIENT IS COMPLIANT WITH MEDS. P) CONTINUE POC.
--- NOTE | 2017-08-12 11:44 | NUR ---
LATE ENTRY FROM 08/11. FENG MET WITH PT'S , JOY, TO DISCUSS RECENT CHANGES IN DISCHARGE PLANNING. FENG STATED PT WOULD BE SAFER IN THE NH ENVIRONMENT AND REFERRED HER TO THREE OTHER NH PLACEMENTS. JOY STATED SHE IS THINKING ABOUT JUST TAKING HIM HOME. SW ENCOURAGED PLACEMENT. JOY VERBALIZED UNDERSTANDING OF THE RISKS WITH HOME PLACEMENT AND STATED SHE WOULD CONTACT SW TUESDAY.
--- NOTE | 2017-08-13 01:31 | NUR ---
B) Patient is alert and oriented to self, restless at times, nonverbal, I) Administered scheduled medications, monitored for safety, R) Medication compliant, resting in bed in the hallway for safety P) Continue plan of care.
[2017-08-13 08:00] VITALS: BP 105/54
--- NOTE | 2017-08-13 11:29 | PN ---
PATIENT:MARCELINO BERMUDEZ MEDICAL RECORD: [id number] LOCATION:TO [facility] ADMISSION DATE: 07/21/17 PROGRESS NOTE DATE OF SERVICE: 08/12/2017 SUBJECTIVE: The patient's case was discussed with staff. He has no new complaint. OBJECTIVE: The patient is in good behavioral control with poor insight about his condition. He has been agitated, but is denying any thoughts of self-harm. ASSESSMENT: No change in diagnoses. PLAN: Supportive and educational interventions were made. Long-term prognosis is guarded. TRANSINT:[id number] Voice Confirmation ID: [id number] DOCUMENT ID: [id number] SOBEIDA ZHOU MD at 1129 CC: [id number] DICTATION DATE: 08/12/17 0938 JET SKI MECHANIC: 08/12/17 1232 ADM IN [facility] [address] [place] [address]
--- NOTE | 2017-08-14 05:01 | NUR ---
B) Patient is alert and oriented to self only, nonverbal, unaware of surroundings or why he is here, I) Administered scheduled medications crushed, R) Medications compliant, resting in bed quietly now, P) Continue plan of care.
[2017-08-14 07:00] VITALS: BP 131/92
--- NOTE | 2017-08-14 08:17 | NUR ---
ATIVAN 0.5MG GIVEN FOR ANXIETY,CONSTANTLY TRYING TO GET OUT OF CHAIR WITHOUT ASSIST.
--- NOTE | 2017-08-14 12:00 | NUR ---
ORIENTED TO SELF ONLY.REQUIRES TOTAL CARE PER STAFF.SPOON FED WITH GOOD RESPONSE.CONSTANTLY TRIES TO GET OUT OF CHAIR WITHOUT ASSIST.MEDS TAKEN CRUSHED AND GIVEN IN APPLESAUCE.WILL CONTINUE WITH PLAN OF CARE,MONITOR FOR CHANGES AND SAFETY.
--- NOTE | 2017-08-14 12:01 | PN ---
PATIENT:MARCELINO BERMUDEZ MEDICAL RECORD: [id number] LOCATION:TO [facility] ADMISSION DATE: 07/21/17 PROGRESS NOTE DATE OF SERVICE: 08/13/2017 SUBJECTIVE: The patient's case was discussed with staff. He has no new complaint. OBJECTIVE: The patient is in good behavioral control with poor insight about his condition. ASSESSMENT: No change in diagnoses. PLAN: Brief supportive and educational interventions were made. The patient is very disorganized and difficult to redirect. He does present a significant management problem. TRANSINT:[id number] Voice Confirmation ID: [id number] DOCUMENT ID: [id number] SOBEIDA ZHOU MD at 1201 CC: [id number] DICTATION DATE: 08/13/17 1145 STATEMENT SERVICES REPRESENTATIVE: 08/13/17 1258 ADM IN [place] [id number] [place] [address]
[2017-08-14 15:34] LABS: BASOPHILS 0.1 % (0-2); EOSINOPHILS 1.4 % (0-7); HEMATOCRIT 32.5 % (42.0-54.0); HEMOGLOBIN 10.7 g/dL (13.5-17.5); IMMATURE GRANULOCYTES 0.1 % (0-5); MCH 31.6 pg (26.0-34.0); MCHC 32.9 g/dL (31.0-37.0); MCV 95.9 fL (80.0-100.0); MONOCYTES 5.1 % (2-11); NEUTROPHILS 78.3 % (40-80); PLATELET COUNT 161 10x3/uL (130-400); RBC 3.39 10x6/uL (4.20-6.10)
[2017-08-14 15:40] LABS: ANION GAP 13.9 mmol/L (8-16); CALCIUM 8.9 mg/dL (8.5-10.1); CARBON DIOXIDE 24.2 mmol/L (21.0-32.0); CREATININE - SERUM 1.1 mg/dL (0.6-1.3); POTASSIUM - SERUM 4.1 mmol/L (3.5-5.1); URIC ACID 5.4 mg/dL (2.6-7.2)
[2017-08-14 16:57] LABS: ERYTHROCYTE SEDIMENTATION RATE 60 mm/hr (0-30)
--- NOTE | 2017-08-14 20:44 | NUR ---
RECEIVED IN HALLWAY. RESTING IN A RECLINING CHAIR WITH EYES OPEN. VERY CONFUSED. CALM AND COOPERATIVE WITH CARE AND ASSESSMENTS. NO SIGNS OF AGGRESSION. PAWAN ALARM ON. CONTINUES TO REST QUIETLY IN RECLINER. CONTINUE PLAN OF CARE
[2017-08-15 07:00] VITALS: BP 138/62
--- NOTE | 2017-08-15 08:30 | NUR ---
PT AM MEDS ADMINISTERED CRUSHED IN APPLESAUCE. PT EATING BREAKFAST AT THIS TIME. WCALESSANDRA.
--- NOTE | 2017-08-15 13:51 | PN ---
PATIENT:MARCELINO BERMUDEZ MEDICAL RECORD: [id number] LOCATION:TO [facility] ADMISSION DATE: 07/21/17 PROGRESS NOTE DATE OF SERVICE: 08/14/2017 SUBJECTIVE: The patient's case was discussed with staff. He has no new complaint. OBJECTIVE: The patient denies intent to harm himself or others. He does tolerate his medications well. ASSESSMENT: No change in diagnoses. PLAN: Supportive and educational interventions were made. Long-term prognosis is guarded. The patient is at or close to his baseline level of functioning with the medications, achieving a reasonable balance between sedation and agitation. I do not think it is reasonable for him to be in a comfort care or hospice setting given the advanced nature of his disease. TRANSINT:[id number] Voice Confirmation ID: [id number] DOCUMENT ID: [id number] SOBEIDA ZHOU MD at 1351 CC: [id number] DICTATION DATE: 08/14/17 1218 LOCATE TECHNICIAN: 08/14/17 1241 ADM IN [place] [place] [address]
[2017-08-15 20:00] VITALS: BP 112/60
--- NOTE | 2017-08-15 21:13 | NUR ---
RECEIVED IN HALLWAY. RESTING IN A RECLINER WITH EYES CLOSED. RESPONDS TO TOUCH. CALM AND COOPERATIVE WITH CARE AND ASSESSMENTS. NO SIGNS OF AGGRESSION. RIGHT ARM SWOLLEN. CONTINUES TO REST IN EYES CLOSED IN RECLINER. CONTINUE PLAN OF CARE
--- NOTE | 2017-08-15 21:55 | NUR ---
PATIENT LETHARGIC. HELD PO MEDS
--- NOTE | 2017-08-16 09:00 | NUR ---
PATIENT SITTING IN RECLINER AT NURSES DESK. MEDICATIONS TAKEN CRUSHED IN APPLESAUCE. HE IS RESTLESS AND KEEPS TRYING TO GET UP OUT OF CHAIR. RIGHT ARM VERY RED AND SWOLLEN. ELEVATED ON A PILLOW FOR COMFORT. REPOSITIONED UP IN CHAIR FREQUENTLY. NO AGGRESSION NOTED. WILL CONTINUE PLAN OF CARE.
[2017-08-16 09:13] VITALS: BP 130/62
[2017-08-16 09:14] VITALS: BP 122/58
--- NOTE | 2017-08-16 10:00 | NUR ---
IV SITED IN LEFT HAND X 2 ATTEMPTS WITH # 22G ANGIOCATH PER FLORENCE MARTINEZ RN. FOR IV ANTIBIOTICS.
[2017-08-16 19:38] VITALS: BP 91/36
--- NOTE | 2017-08-17 02:25 | NUR ---
RECEIVED IN PATIENT ROOM. RESTING IN BED WITH EYES CLOSED. AWAKES TO VOICE. CALM AND COOPERATIVE WITH CARE AND ASSESSMENT. NO SIGNS OF AGGRESSION. ENCOURAGE TO EXPRESS NEEDS. REDIRECT AND REORIENT NEEDED. RESTING IN BED WITH EYES CLOSED AT THIS TIME. CONTINUE PLAN OF CARE.
[2017-08-17 09:54] VITALS: BP 127/46
--- NOTE | 2017-08-17 10:01 | NUR ---
B) PATIENT IS AWAKE AND HE DID NOT WANT TO GET UP OUT OF BED THIS AM, HE DOES HAVE A SWOLLEN RIGHT ELBOW AND THE REST OF HIS ARM IS EDEMATOUS, BUT NOT PINK IN COLOR. HE HAS AN IV IN HIS LEFT HAND THAT IS WRAPPED IN KOBAN. DID APPLY A CLEAN MEPILEX TO HIS BUTTOCKS HE HAS AN ABRASION TO THE RIGHT SIDE, ELVIA MAT ON DANIELE CHAIR, ASSIST TO TURN QU 2 HRS TO GET OFF OF THE BUTTOCKS. I) PROVIDE PRESCRIBED MEDS, ENCOURAGE EATING AND DRINKING. P) CONTINUE POC.
--- NOTE | 2017-08-17 10:15 | PN ---
PATIENT:MARCELINO BERMUDEZ MEDICAL RECORD: [id number] LOCATION:TO [facility] ADMISSION DATE: 07/21/17 PROGRESS NOTE DATE OF SERVICE: 08/15/2017 SUBJECTIVE: No new complaint. OBJECTIVE: The patient has continued to do relatively well. There have been some delays in terms of placement. The is looking into an alternative alf. On exam, mood is euthymic. Affect very constricted. Speech is minimal. Content of thought is negative for overt psychosis. Sensorium unchanged. ASSESSMENT: No change in diagnosis. PLAN: 1. Continue all current medications. 2. Continue supportive therapy. TRANSINT:[id number] Voice Confirmation ID: [id number] DOCUMENT ID: [id number] YEVGENIY SANDOVAL III, MD at 1015 CC: [id number] DICTATION DATE: 08/15/17 1033 VARNISH BLENDER: 08/15/17 1219 ADM IN [place] [id number] [place] [id number]
--- NOTE | 2017-08-17 10:15 | PN ---
PATIENT:MARCELINO BERMUDEZ MEDICAL RECORD: [id number] LOCATION:TO [facility] ADMISSION DATE: 07/21/17 PROGRESS NOTE DATE OF SERVICE: 08/16/2017 SUBJECTIVE: No coherent complaint. OBJECTIVE: The patient is more restless today. He does have a cellulitis of the arm and obviously is uncomfortable from this. He has been somewhat difficult to manage because of his restlessness. On exam, mood is very anxious. Affect is shallow and brittle. Speech is unintelligible. Content of thought seems to focus primarily on somatic complaints. Sensorium shows no change. ASSESSMENT: No change in diagnosis. PLAN: 1. We will continue medical management as currently ordered. 2. Awaiting transfer status depending on acceptance at half-way. TRANSINT:[id number] Voice Confirmation ID: [id number] DOCUMENT ID: [id number] YEVGENIY SANDOVAL III, MD at 1015 CC: [id number] DICTATION DATE: 08/16/17 1109 INSTRUMENT REPAIR SUPERVISOR: 08/16/17 1348 ADM IN [place] [id number] [place] [id number]
--- NOTE | 2017-08-17 10:15 | PN ---
PATIENT:MARCELINO BERMUDEZ MEDICAL RECORD: [id number] LOCATION:TO [facility] ADMISSION DATE: 07/21/17 PROGRESS NOTE DATE OF SERVICE: 08/04/2017 SUBJECTIVE: No new complaint. OBJECTIVE: The patient has remained stable. Discharge plans are pending at the moment. He is tolerating all medications and has not required p.r.n. medication. On exam, mood is for the most part euthymic. Affect is bland. Speech is very terse. Content of thought focuses only on somatic concerns. Sensorium shows no change. ASSESSMENT: No change in diagnosis. PLAN: 1. Continue all current medications. 2. Continue supportive therapy. TRANSINT:[id number] Voice Confirmation ID: [id number] DOCUMENT ID: [id number] YEVGENIY SANDOVAL III, MD at 1015 CC: [id number] DICTATION DATE: 08/04/17 1109 PURCHASING INTERN: 08/04/17 1146 ADM IN [place] [id number] [place] [address]
[2017-08-17] MEDS ORDERED: TEFLARO 600 MG600 M1 IV (10:46)
[2017-08-17] MEDS ORDERED: MEGACE40 MG PO (10:46)
[2017-08-17] MEDS ORDERED: KLONOPIN0.5 MG PO (10:47)
[2017-08-17] MEDS ORDERED: GEODON20 MG PO (10:47)
[2017-08-17] MEDS ORDERED: LINZESS145 MCG PO (10:48)
[2017-08-17] MEDS ORDERED: VITAMIN B-121000 MCG PO (10:48)
[2017-08-17] MEDS ORDERED: VITAMIN D5000 UNIT PO (10:48)
[2017-08-17] MEDS ORDERED: FLORAJEN3 CAPS460 MG PO (10:48)
--- NOTE | 2017-08-17 11:40 | NUR ---
Nutrition Follow Up: Pt is eating 60% meal avg on a regular puree diet with thin liquids. +BM 08/04/17 - no BM x 13 days. Labs reviewed. Meds noted including Megace. Rec continue current diet. Rec consider bowel regimen. RD following.
--- NOTE | 2017-08-17 13:30 | NUR ---
REPORT CALLED TO SKILLED NURSING SPOKE TO EDSIREE. ALL BELONGINGS ACCOUNTED AND PACKED, PATIENT D/C'D FROM HALF-WAY.
--- NOTE | 2017-08-20 06:01 | DS ---
PATIENT:MARCELINO BERMUDEZ :32 MEDICAL RECORD: [id number] DISCHARGE SUMMARY ADMISSION DATE: 07/21/17 DISCHARGE DATE: 08/17/17 DATE OF ADMISSION: 07/21/2017 DATE OF DISCHARGE: 08/17/2017 HISTORY OF PRESENT ILLNESS: First residential admission for this 87-year-old white male. The patient had been transferred here from [facility]. He had been having some syncopal episodes at home. He has a previous history of cerebrovascular disease and associated dementia. The patient had been quite agitated and combative at the time of admission. For further details, please see previously dictated history. COURSE IN THE HOSPITAL: The patient was seen in consultation by Dr. Manuel. Dr. Manuel noted the presence of cerebrovascular disease as well as chronic atrial fibrillation and hyperlipidemia. The patient was somewhat difficult to manage because of significant agitation. He was started on routine doses of Klonopin at bedtime as well as Geodon 20 mg twice a day. Over the course of the hospitalization, the patient has showed a gradual improvement in terms of mental status. He was started on Megace because of poor oral intake. He did develop a cellulitis of the right forearm and was started on IV antibiotics for this. Contact was maintained with the patient's , the decision was made to transfer to [facility] for long-term care. 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 AXIS II: No diagnosis. AXIS III: Hyperlipidemia, chronic atrial fibrillation, and cellulitis right arm. AXIS IV: Moderate. AXIS V: 38. PLAN: 1. The patient is transferred to the detention today on current medications. 2. Diet and activities as tolerated. 3. Follow up through primary care assigned to the detention. TRANSINT:[id number] Voice Confirmation ID: [id number] DOCUMENT ID: [id number] YEVGENIY SANDOVAL III, MD at 0601 CC: [id number] DICTATION DATE: 08/17/17 1104 SEAT NAILER: 08/18/17 0202 DIS IN 08/17/17 [facility] [address] [place] [address]
== END 2017-08-17 13:41 | DRG 57 ==
LOC: D.PSYCH 17:53
PROVIDERS: Family Medicine; ADMIT Psychiatry & Neurology Psychiatry
DX: G30.9 Alzheimer's disease, unspecified (principal); F02.81 Dementia in other diseases classified elsewhere, unspecified severity, with behavioral disturbance; F01.51 Vascular dementia, unspecified severity, with behavioral disturbance; L03.113 Cellulitis of right upper limb; E78.5 Hyperlipidemia, unspecified; I48.2 Chronic atrial fibrillation; E53.8 Deficiency of other specified B group vitamins; E55.9 Vitamin D deficiency, unspecified; K59.00 Constipation, unspecified; R13.10 Dysphagia, unspecified; Z74.09 Other reduced mobility; Z87.891 Personal history of nicotine dependence